=== PATIENT | female | born 1995 | race Caucasian/White ===

== ENCOUNTER 2022-12-16 18:34 | Emergency (ER) | payer OTHER ==
[~2022-12-16] VITALS: Ht 165.1 cm; Wt 85.3 kg
[2022-12-16] MEDS ORDERED: PREDNISONE20 M1 PO (20:52)
[2022-12-16] MEDS ORDERED: ONDANSETRON4 MG SL (20:52)
== END 2022-12-16 20:57 | disposition home or self-care (01) ==
LOC: ED 18:34
DX: B34.9 Viral infection, unspecified (principal); Z88.8 Allergy status to other drugs, medicaments and biological substances; Z20.822 Contact with and (suspected) exposure to COVID-19